=== PATIENT | male | born 1940 | race Caucasian/White ===

== ENCOUNTER → 2016-08-21 | Outpatient (CLI) | payer OTHER, BC ==
[~2016-08-21] MED LIST: ASPI325T45 PO; DOXY100C76 PO; LPR25 PO; ZCRT/40 PO
[2016-08-21 12:38] LABS: BASO % 0.2 %; BASO ABS # 0.02 K/uL (0-0.2); COMPLETE YES; EOS % 0.6 %; HEMATOCRIT 43.9 % (42-52); IG% 0.6 %; LYMPH % 24.7 %; LYMPH ABS # 2.08 K/uL (1.2-3.4); MEAN CELL VOLUME 89.4 fL (80-100); MEAN CORPUSCULAR HEMOGLOBIN 31.4 pg (25-34); MEAN CORPUSCULAR HGB CONC 35.1 g/dl (32-36); MEAN PLATELET VOLUME 10.6 fL (7.4-10.4); MONO % 6.7 %; NEUT % 67.2 %; PLATELET COUNT 223 K/uL (130-400); RED BLOOD COUNT 4.91 M/uL (4.7-6.1); WHITE BLOOD COUNT 8.41 K/uL (4.8-10.8)
[2016-08-21 12:52] LABS: PROTHROMBIN TIME (PATIENT) 10.6 SECONDS (9.0-12.0)
[2016-08-21 17:58] LABS: ALT/SGPT 26 U/L (12-78); AST/SGOT 17 U/L (15-37); BLOOD UREA NITROGEN 21 mg/dl (7-18); BUN/CREATININE RATIO 18.9 (10-20); CALCIUM 8.9 mg/dl (8.5-10.1); CARBON DIOXIDE 26 mmol/L (21-32); CHLORIDE 109 mmol/L (98-107); GLUCOSE 102 mg/dl (70-99); POTASSIUM 4.1 mmol/L (3.5-5.1); SODIUM 143 mmol/L (136-145)
[2016-08-21 18:01] LABS: ALB/GLOB RATIO 1.1 (0.9-2); ALKALINE PHOSPHATASE 57 U/L (45-117)
== END | disposition home or self-care (01) ==
LOC: C.LABPVFM 11:05
PROVIDERS: ATTEND Family Medicine
DX: Z01.818 Encounter for other preprocedural examination (principal); H26.9 Unspecified cataract

== ENCOUNTER → 2016-09-24 | Outpatient (CLI) | payer OTHER, BC ==
[2016-09-24 13:40] LABS: CHOLESTEROL/HDL RATIO 2.6
== END | disposition home or self-care (01) ==
LOC: C.LABPVFM 08:33
PROVIDERS: ATTEND Family Medicine
DX: I25.10 Atherosclerotic heart disease of native coronary artery without angina pectoris (principal); E78.00 Pure hypercholesterolemia, unspecified

== ENCOUNTER 2017-09-17 09:50 | Emergency (ER) | payer OTHER, BC ==
[~2017-09-17] VITALS: Ht 177.8 cm; Wt 100.4 kg
[2017-09-17 09:52] VITALS: TEMP 36.4; Ht 177.8 cm; Wt 100.4 kg
[2017-09-17] MEDS ORDERED: ASPIRIN 81 MG CHEW PO STA (10:06)
[2017-09-17] MEDS ORDERED: ALUMINUM/MAGNESIUM SUSP 30 ML UDC PO STA (10:06)
--- NOTE | 2017-09-17 10:27 | DIAGNOSTIC IMAGING REPORT ---
CHEST ONE VIEW PORTABLE CLINICAL HISTORY: 77 years-old Male presenting with CHEST PAIN. TECHNIQUE: Portable upright AP view of the chest was obtained. COMPARISON: 11/20/2015. FINDINGS: Median sternotomy wires and mediastinal surgical clips again noted. Atherosclerosis of aortic arch. Cardiac silhouette moderately enlarged, stable to slightly increased in size from prior. No significant prominence of pulmonary vasculature. No focal opacity. No large effusion or pneumothorax. Osseous structures normal. Upper abdomen normal. IMPRESSION: 1. Cardiomegaly. No other evidence of acute cardiopulmonary disease. Electronically signed by: Peter Reyez M.D. 09/17/2017 10:26 AM Dictated Date/Time: 09/17/2017 10:25 AM
--- NOTE | 2017-09-17 10:44 | EMERGENCY ROOM VISIT NOTE ---
History Report prepared by Jaci: Carmella López Under the Supervision of: Dr. Pedro Arana D.O. First contact with patient: 10:01 Chief Complaint: CHEST PAIN Stated Complaint: CHEST PAIN Nursing Triage Summary: pt reports chest pain started afew days ago pain in center of chest denies any n/v. does not radiate. has hx of double bypass 2008. dr wright cardiology History of Present Illness The patient is a 77 year old male who presents to the Emergency Room with complaints of intermittent left sided chest pain for the past 2 weeks. He rates his pain as 4/10 in severity. He denies any modifying factors. He is feeling slightly short of breath with exertion. Last evening the patient developed heaviness in the center of his chest. He was able to sleep throughout the night but the heaviness was still present when he woke up this morning. His pain does not radiating into his neck, jaw, shoulder, or arm. The patient denies back pain , abdominal pain, and pain or swelling in his legs. He has a history of a previous SD with a double bypass in 2008. Dr. Wright is his tester wafer substrate. Source of History: patient Onset: 2 weeks ago Position: chest Symptom Intensity: 4/10 Quality: other (heaviness) Timing: intermittent Modifying Factors (Worsening): other (none) Modifying Factors (Relieving): other (none) Associated Symptoms: + SOB, No neck pain, No abdominal pain, No back pain Review of Systems See HPI for pertinent positives & negatives. A total of 10 systems reviewed and were otherwise negative. 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 Surgical Problems: (1) Presence of aortocoronary bypass graft Family History Diabetes mellitus Social History Smoking Status: Former Smoker Current/Historical Medications Scheduled Aspirin (Aspirin), 1 TAB PO QAM Metoprolol Tartrate (Lopressor), 12.5 MG PO BID Simvastatin (Zocor), 40 MG PO HS Allergies Coded Allergies: NO KNOWN DRUG ALLERGIES (Verified Allergy, Unknown, ., 09/17/17) Physical Exam Vital Signs Date Time Temp Pulse Resp B/P (MAP) Pulse Ox O2 Delivery O2 Flow Rate FiO2 09/17/17 12:17 65 18 156/83 93 09/17/17 11:23 62 18 156/83 92 Room Air 09/17/17 10:52 70 09/17/17 10:44 Room Air 09/17/17 09:52 36.4 78 18 182/93 94 Room Air Physical Exam GENERAL: Patient is awake, alert, and in no acute distress. Patient is resting comfortably and showing no signs of anxiety EYES: The conjunctivae are clear. The pupils are round and reactive. EARS, NOSE, MOUTH AND THROAT: The nose is without any evidence of any deformity. Mucous membranes are moist tongue is midline NECK: The neck is nontender and supple. RESPIRATORY: Normal respiratory effort is noted there is no evidence of wheezing rhonchi or rales CARDIOVASCULAR: Regular rate and rhythm noted there no murmurs rubs or gallops normal S1 normal S2 GASTROINTESTINAL: The abdomen is soft. Bowel sounds are present in all quadrants. Abdomen is nontender MUSCULOSKELETAL/EXTREMITIES: There is no evidence of gross deformity full range of motion is noted in the hips and shoulders SKIN: Pedal edema bilaterally. There is no obvious evidence of any rash. There are no petechiae, pallor or cyanosis noted. NEUROLOGIC: Patient is awake alert and oriented x3 Medical Decision & Procedures ER Provider Diagnostic Interpretation: Radiology results as stated below per my review and radiologist interpretation: CHEST ONE VIEW PORTABLE CLINICAL HISTORY: 77 years-old Male presenting with CHEST PAIN. TECHNIQUE: Portable upright AP view of the chest was obtained. COMPARISON: 11/20/2015. FINDINGS: Median sternotomy wires and mediastinal surgical clips again noted. Atherosclerosis of aortic arch. Cardiac silhouette moderately enlarged, stable to slightly increased in size from prior. No significant prominence of pulmonary vasculature. No focal opacity. No large effusion or pneumothorax. Osseous structures normal. Upper abdomen normal. IMPRESSION: 1. Cardiomegaly. No other evidence of acute cardiopulmonary disease. Electronically signed by: Peter Reyez M.D. 09/17/2017 10:26 AM Dictated Date/Time: 09/17/2017 10:25 AM Laboratory Results 09/17/17 10:44 Red Blood Count 5.18, Mean Corpuscular Volume 89.4, Mean Corpuscular Hemoglobin 30.5, Mean Corpuscular Hemoglobin Concent 34.1, Mean Platelet Volume 10.3, Neutrophils (%) (Auto) 63.0, Lymphocytes (%) (Auto) 28.0, Monocytes (%) (Auto) 7.4, Eosinophils (%) (Auto) 0.9, Basophils (%) (Auto) 0.3, Neutrophils # (Auto) 4.41, Lymphocytes # (Auto) 1.96, Monocytes # (Auto) 0.52, Eosinophils # (Auto) 0.06, Basophils # (Auto) 0.02 09/17/17 10:44 Test 09/17/17 10:44 White Blood Count 7.00 K/uL (4.8-10.8) Red Blood Count 5.18 M/uL (4.7-6.1) Hemoglobin 15.8 g/dL (14.0-18.0) Hematocrit 46.3 % (42-52) Mean Corpuscular Volume 89.4 fL (80-100) Mean Corpuscular Hemoglobin 30.5 pg (25-34) Mean Corpuscular Hemoglobin Concent 34.1 g/dl (32-36) Platelet Count 226 K/uL (130-400) Mean Platelet Volume 10.3 fL (7.4-10.4) Neutrophils (%) (Auto) 63.0 % Lymphocytes (%) (Auto) 28.0 % Monocytes (%) (Auto) 7.4 % Eosinophils (%) (Auto) 0.9 % Basophils (%) (Auto) 0.3 % Neutrophils # (Auto) 4.41 K/uL (1.4-6.5) Lymphocytes # (Auto) 1.96 K/uL (1.2-3.4) Monocytes # (Auto) 0.52 K/uL (0.11-0.59) Eosinophils # (Auto) 0.06 K/uL (0-0.5) Basophils # (Auto) 0.02 K/uL (0-0.2) RDW Standard Deviation 46.0 fL (36.4-46.3) RDW Coefficient of Variation 14.0 % (11.5-14.5) Immature Granulocyte % (Auto) 0.4 % Immature Granulocyte # (Auto) 0.03 K/uL (0.00-0.02) Prothrombin Time 10.5 SECONDS (9.0-12.0) Prothromb Time International Ratio 1.0 (0.9-1.1) Activated Partial Thromboplast Time 27.5 SECONDS (21.0-31.0) Partial Thromboplastin Ratio 1.1 Anion Gap 7.0 mmol/L (3-11) Est Creatinine Clear Calc Drug Dose 69.1 ml/min Estimated GFR () 79.7 Estimated GFR (Non- 68.8 BUN/Creatinine Ratio 17.3 (10-20) Calcium Level 8.6 mg/dl (8.5-10.1) Total Bilirubin 0.5 mg/dl (0.2-1) Direct Bilirubin 0.1 mg/dl (0-0.2) Aspartate Amino Transf (AST/SGOT) 19 U/L (15-37) Alanine Aminotransferase (ALT/SGPT) 31 U/L (12-78) Alkaline Phosphatase 59 U/L (45-117) Total Creatine Kinase 84 U/L (39-308) Creatine Kinase MB 2.2 ng/ml (0.5-3.6) Creatine Kinase MB Ratio 2.6 (0-3.0) Troponin I < 0.015 ng/ml (0-0.045) Total Protein 7.9 gm/dl (6.4-8.2) Albumin 3.8 gm/dl (3.4-5.0) Lipase 96 U/L (73-393) Laboratory results per my review. Medications Administered Medications (Trade) Dose Ordered Sig/Natalee Route Start Time Stop Time Status Last Admin Dose Admin Al Hydroxide/Mg Hydroxide (Maalox Susp) 30 ml NOW STAT PO 09/17/17 10:06 09/17/17 10:08 DC 09/17/17 10:57 30 ML Aspirin (Aspirin Chew) 324 mg NOW STAT PO 09/17/17 10:06 09/17/17 10:08 DC 09/17/17 10:56 324 MG ECG Per My Interpretation Indication: chest pain Rate (beats per minute): 77 Rhythm: normal sinus Findings: 1st degree AV block, no acute ischemic change, no ectopy Comparison ECG Date: 11/20/15 Change: no significant change ED Course 1001: The patient was evaluated in room C10. A complete history and physical examination were performed. 1006: Aspirin 324 mg PO, Maalox Susp 30 ml PO 1125: I updated the patient and he is doing well at this time. 1141: I discussed the case with Dr. Wright, the patient's tester wafer substrate. He will follow-up with the patient in the office as an outpatient. 1149: I reassessed the patient at this time. He is feeling better and resting comfortably. I discussed the results and treatment plan with the patient. I answered all pertaining questions that he had. He expressed understanding and verbalized agreement. The patient will be discharged home. Medical Decision Prior records/ancillary studies reviewed. Triage Nursing notes reviewed. The patient's history was concerning for chest pain. Differential diagnosis: Etiologies such as cardiac ischemia, aortic dissection, pulmonary embolism, pneumonia, pneumothorax, musculoskeletal, infections, pericarditis, myocarditis , esophageal rupture, gastrointestinal, as well as others were entertained. The patient is a 77-year-old male who presented to the emergency department for an evaluation of chest discomfort. The patient described chest discomfort he been having for a few weeks but then started having pressure which was substernal over the last evening into today. The patient states his pain was constant. He had an EKG which did not reveal any acute ischemic changes and his heart attack troponin was negative despite having ongoing pain for greater than 6 hours. I discussed the patient's laboratory and radiographic studies with him. I also discussed the limitations of the emergency department workup for chest pain with him. At this time I recommended that he stay in the hospital for further cardiac workup but the patient did not wish to stay in the hospital. For this reason I discussed his case with his primary tester wafer substrate. He is agreed to see the patient as soon as possible for a stress test. The patient was encouraged to rest and avoid any strenuous activity. He was also encouraged to continue all medications as prescribed and return to the emergency department immediately if symptoms change worsen or the need arises. Medication Reconcilliation Current Medication List: was personally reviewed by me Blood Pressure Screening Patient's blood pressure: Elevated blood pressure Blood pressure disposition: Referred to PCP Consults Time Called: 1143 Consulting Physician: Dr. Wright Returned Call: 1141 I discussed the case with Dr. Wright, the patient's tester wafer substrate. He will follow- up with the patient in the office as an outpatient. Impression Primary Impression: Chest pain Additional Impression: Dyspnea on exertion Scribe Attestation The scribe's documentation has been prepared under my direction and personally reviewed by me in its entirety. I confirm that the note above accurately reflects all work, treatment, procedures, and medical decision making performed by me. Departure Information Dispostion Home / Self-Care Referrals Peyman Damon M.D. (PCP) Pedro Wright M.D. Forms Call Back Authorization, HOME CARE DOCUMENTATION FORM, IMPORTANT VISIT INFORMATION Patient Instructions ED Chest Pain Atypical Unkn Cause, My [facility] Additional Instructions Call your tester wafer substrate to schedule a follow-up appointment. Rest and avoid any strenuous activity. Continue all medications as prescribed. Return to the emergency department immediately if symptoms change worsen or the need arises. Call your primary tester wafer substrate today to schedule a follow-up appointment and for possible stress testing. Problem Qualifiers Primary Impression: Chest pain Chest pain type: unspecified Qualified Codes: R07.9 - Chest pain, unspecified
[2017-09-17 11:00] LABS: BASO % 0.3 %; BASO ABS # 0.02 K/uL (0-0.2); EOS % 0.9 %; EOS ABS # 0.06 K/uL (0-0.5); HEMATOCRIT 46.3 % (42-52); HEMOGLOBIN 15.8 g/dL (14.0-18.0); IG# 0.03 K/uL (0.00-0.02); LYMPH ABS # 1.96 K/uL (1.2-3.4); MEAN CELL VOLUME 89.4 fL (80-100); MEAN CORPUSCULAR HEMOGLOBIN 30.5 pg (25-34); MEAN CORPUSCULAR HGB CONC 34.1 g/dl (32-36); MEAN PLATELET VOLUME 10.3 fL (7.4-10.4); MONO % 7.4 %; MONO ABS # 0.52 K/uL (0.11-0.59); NEUT ABS # 4.41 K/uL (1.4-6.5); PLATELET COUNT 226 K/uL (130-400)
[2017-09-17 11:13] LABS: PTT PATIENT 27.5 SECONDS (21.0-31.0)
[2017-09-17 11:17] LABS: ALBUMIN 3.8 gm/dl (3.4-5.0); ALT/SGPT 31 U/L (12-78); AST/SGOT 19 U/L (15-37); BLOOD UREA NITROGEN 18 mg/dl (7-18); CALCIUM 8.6 mg/dl (8.5-10.1); CARBON DIOXIDE 23 mmol/L (21-32); CREATININE 1.03 mg/dl (0.60-1.40); GLUCOSE 104 mg/dl (70-99); LIPASE 96 U/L (73-393); POTASSIUM 3.9 mmol/L (3.5-5.1); SODIUM 139 mmol/L (136-145)
[2017-09-17 11:22] LABS: ALKALINE PHOSPHATASE 59 U/L (45-117); CKMB 2.2 ng/ml (0.5-3.6); TOTAL PROTEIN 7.9 gm/dl (6.4-8.2)
[2017-09-17 12:17] VITALS: BP 156/83; PULSE 65; O2SAT 93
== END 2017-09-17 12:18 | disposition home or self-care (01) ==
LOC: C.EDB 09:51 → C.EDC 12:18
DX: R07.9 Chest pain, unspecified (principal); R06.09 Other forms of dyspnea; I10 Essential (primary) hypertension; I25.2 Old myocardial infarction; E78.5 Hyperlipidemia, unspecified; Z87.891 Personal history of nicotine dependence; Z79.82 Long term (current) use of aspirin; Z83.3 Family history of diabetes mellitus

== ENCOUNTER 2022-02-28 10:57 | Observation (INO) ==
--- NOTE | 2022-02-28 11:21 | ED Triage Note ---
Date of Service February 28, 2022 History of Present Illness This patient was briefly evaluated while in triage. An abbreviated physical exam was performed. This patient is a 81-year-old Male who presents to the ED for evaluation of difficulty moving his right foot. Patient first noticed yesterday morning that his right foot was dragging on the carpet when he walked. He denies any other weakness. Denies headaches, numbness, vision problems, or slurred speech. Physical Exam VITALS: Vitals are noted on the nurse's note and reviewed by myself. GENERAL: This is an 81-year-old male, in no acute distress, well-developed well- nourished. HEART: Regular rate and rhythm without murmurs gallops or rubs. LUNGS: Clear to auscultation bilaterally without wheezes, rales or rhonchi. NEURO: Patient was alert and oriented to person place and time. No facial drooping. Initial orders for labs and / or imaging were placed and patient was placed in the waiting area until a bed is available. Please see further documentation for the full ED course. MDM / Impression Impression Impression: Thalamic stroke
[2022-02-28 13:11] LABS: Basophils # (auto) 0.02 K/uL (0-0.2); Basophils % (auto) 0.2 %; Eosinophils # (auto) 0.03 K/uL (0-0.50); Eosinophils % (auto) 0.3 %; Hematocrit (blood only) 46.8 % (40.1-51.0); Hemoglobin 15.4 g/dl (14.0-18.0); Immature Granulocytes # (auto) 0.02 K/uL (0.00-0.02); Immature Granulocytes % (auto) 0.2 %; Lymphocytes # (auto) 1.97 K/uL (1.2-3.4); Lymphocytes % (auto) 21.6 %; Mean Corpuscular Hemoglobin 30.3 pg (25.0-34.0); Mean Corpuscular Hgb Conc 32.9 g/dL (32.0-36.0); Mean Corpuscular Volume 92.1 fL (80.0-100.0); Mean Platelet Volume 10.5 fL (9.4-12.4); Monocytes # (auto) 0.95 K/uL (0.24-0.82); Monocytes % (auto) 10.4 %; Neutrophils # (auto) 6.12 K/uL (1.4-6.5); Neutrophils % (auto) 67.3 %; Platelet Count 255 K/uL (130-400); RDW Coefficient of Variation 14.1 % (11.5-14.5); RDW Standard Deviation 48.2 fL (36.4-46.3); Red Blood Count 5.08 M/uL (4.63-6.08); White Blood Count 9.11 K/ul (4.8-10.8)
[2022-02-28 13:24] LABS: Partial Thromboplastin Time 27.9 Seconds (21.0-31.0); Prothrombin Time 10.8 Seconds (9.0-12.0)
[2022-02-28 13:41] LABS: Troponin I High Sensitivity 6.2 pg/ml (0-20)
[2022-02-28 13:46] LABS: Albumin Globulin Ratio 1.2 (0.9-2); Albumin Level 4.3 gm/dl (3.4-5.0); BUN Creatinine Ratio 19.6 (10-20); Bilirubin,Total 0.4 mg/dl (0.2-1.0); Calcium 9.8 mg/dl (8.5-10.1); Creatinine Clr Calc Pharmacy 60.5 ml/min; Est GFR (Non-African American) 60.4 ml/min; Globulin 3.5 gm/dl (2.5-4.0); Magnesium 2.2 mg/dl (1.7-2.4); Potassium 4.6 mmol/L (3.5-5.1); Total Protein 7.8 gm/dl (6.0-8.3)
[2022-02-28] MEDS ORDERED: OPTIRAY 300 500mL IV ONE (14:07)
--- NOTE | 2022-02-28 14:36 | CT Scan Report ---
CT ANGIOGRAPHY OF THE NECK WITH CONTRAST CLINICAL HISTORY: Stroke Like Symptoms. COMPARISON STUDY: No previous studies for comparison. Technique: CT angiography of the carotid and vertebral arteries was obtained using [employer] and 3D rec onstruction on an independent workstation. NASCET criteria was utilized. Automated exposure control was utilized for the study. A dose lowering technique was utilized adhering to the principles of ALA RA. CT DOSE: 1236.74 mGy.cm Findings: Emphysema is noted within the lung apices. There is no acute cervical spine fracture. There is no cervical lymphadenopathy. The origin the right vertebral artery is not well assessed on this e xam due to artifact. There is extensive plaque of the aortic arch and proximal left subclavian artery . There is mild stenosis of the left subclavian artery. The left vertebral artery is patent. There is no dissection within the major vessels of the neck. There is moderate plaque within the bilateral ca rotid bifurcations. This results in mild stenosis of the proximal right internal carotid artery appro ximately 30%. The vessel measures 2.7 mm at site of narrowing and 3.9 mm distally. There is no stenos is of the cervical left internal carotid artery. There is moderate stenosis at the origin of the bila teral external carotid arteries. CTA of the head will be reported separately. IMPRESSION: 1. Moderate atherosclerotic plaque within the bilateral carotid bifurcations. Approximate 30% stenosi s of the proximal right internal carotid artery. No stenosis of the cervical left internal carotid ar renetta. 2. Moderate stenoses at the origins of the bilateral external carotid arteries. 3. Mild stenosis of the proximal left subclavian artery. ACT 112: Negative or not required by law. Electronically signed by: Joshua Espinoza M.D. 02/28/2022 2:34 PM
--- NOTE | 2022-02-28 14:47 | CT Scan Report ---
HEAD CT NONCONTRAST CT DOSE: HISTORY: Stroke Like Symptoms TECHNIQUE: Multiaxial CT images of the head were performed without the use of intravenous contrast. A utomated exposure control was utilized for this study. A dose lowering technique was utilized adheri ng to the principles of ALARA. Comparison: Head CT 04/23/2018. Findings: The paranasal sinuses and mastoid air cells are clear. The calvarium and skull base are int act. There is no mass, hematoma, midline shift, acute infarct. White matter hypodensity is nonspecifi c but suggestive of microvascular ischemic change. The ventricles and sulci demonstrate mild age-rela aaron involutional changes. Impression: No acute intracranial abnormality. Moderate microvascular ischemic changes. ACT 112: Negative or not required by law. Electronically signed by: Champ Curran M.D. 02/28/2022 2:44 PM
--- NOTE | 2022-02-28 14:57 | CT Scan Report ---
HEAD CTA HISTORY: Stroke Like Symptoms TECHNIQUE: Multiaxial CT images of the head were performed following the intravenous administration o f contrast to evaluate the major cerebral vessels. Maximum intensity projection images were also obta ined. A dose lowering technique was utilized adhering to the principles of ALARA. COMPARISON: None. FINDINGS: A 7 mm hypodensity within the left thalamus favors a chronic lacunar infarct. No definite a cute infarcts or intracranial hemorrhage identified. Moderate microvascular ischemic changes are agai n noted. The major dural venous sinuses are patent. Severely hypoplastic right P1 segment. The right [employer]AYER is fed primarily through the right posterior communicating artery. This is considered to be a nor mal variant. Moderate calcified plaque within the bilateral carotid siphons. Visualized intracranial internal carotid arteries, distal vertebral arteries, and basilar artery are widely patent. There is no significant stenosis, occlusion, or aneurysm seen within the bilateral ACAs, MCAs, or milk tanker driver. IMPRESSION: 1. No significant stenosis, occlusion, or aneurysm within the [place] of Yun. 2. A 7 mm hypodensity within the left thalamus is technically age indeterminate but favors a chronic lacunar infarct. ACT 112: Negative or not required by law. Electronically signed by: Champ Curran M.D. 02/28/2022 2:56 PM
--- NOTE | 2022-02-28 16:26 | Emergency Department Note ---
History of Present Illness General Chief complaint: TIA Symptoms Stated complaint: RT FOOT NOT WORKING CORRECTLY,TIRED,ON 02/27/22 Time Seen by Provider: 02/28/22 16:07 History of Present Illness 81-year-old male presents to the ED with a chief complaint of dragging his right foot. The patient states that yesterday morning he noticed the symptoms when he was walking. He states that he is able to lift the right foot but if he is not concentrating on it, it seems to drag. He is also having difficulty climbing stairs. The patient's daughter states that it seems like he is tipping forward at times and unsteady with his gait. The patient does have history of MN. He takes 325 mg of aspirin regularly. He has history of two-vessel bypass in 2008. Denies any headaches. No other focal weakness. No other complaints. Home Medications Medication Instructions Recorded Confirmed Type amitriptyline 25 mg tablet 25 mg PO HS 05/07/21 12/24/21 History aspirin 81 mg tablet,delayed 81 mg PO QAM 05/07/21 12/24/21 History release simvastatin 40 mg tablet 40 mg PO HS #30 tabs 06/07/21 12/24/21 Rx tamsulosin 0.4 mg capsule 0.4 mg PO HS #30 caps 08/07/21 12/24/21 Rx metoprolol tartrate 25 mg tablet 12.5 mg PO BID #30 tabs 09/10/21 12/24/21 Rx omeprazole 20 mg capsule,delayed 20 mg PO QAM #60 caps 10/29/21 12/24/21 Rx release molnupiravir 200 mg capsule (EUA) 800 mg PO Q12H 5 days #40 caps 01/10/22 01/10/22 Rx Allergies Allergy/AdvReac Type Severity Reaction Status Date / Time No Known Drug Allergies Allergy Unknown . Verified 12/24/21 11:29 Past Med/Surg History Medical History BPH (benign prostatic hyperplasia) CAD (coronary artery disease) Essential (primary) hypertension Hyperlipidemia, unspecified Impaired fasting glucose Old myocardial infarction (~2008) had double bypass---follows with Dr. Wright Sleep apnea cpap Surgical History History of bilateral cataract extraction History of cardiac cath (~2008) @ [facility]--stents placed had double bypass History of colonoscopy History of excision of pilonidal cyst History of tooth extraction Presence of aortocoronary bypass graft (~2008) double bypass @ [facility] [place]--follows with Dr. Wright Family History Father Myocardial infarction Colorectal cancer Other No family history of adverse response to anesthesia Denies family history of Ovarian cancer Prostate cancer Breast cancer Social History Smoking Status: Former smoker Years Smoked: 16; Second Hand Exposure: No; Hx Alcohol Use: Yes Alcohol type: beer Hx Substance Use: No Preferred Language: Estonian Communication Ability: Effective Hearing Ability: Hard of Hearing Junior Accounting Clerk Required: No Beliefs That Will Affect Care: None marital status: / Current Living Situation: Alone current occupational status: retired How many Children do You have: 1 Feels Safe at Home: Yes Childhood Exposure to Second-Hand Smoke: Yes caffeine: Yes (coffee) Dental Care, Regularly: No Physical Activity Frequency: Daily Seatbelt Use: always Sunscreen Use: No Assistive Devices: CPAP, Denture - Upper and Glasses Review of Systems A total of 10 systems reviewed and were otherwise negative Physical Exam Vital Signs Vital Signs - 24 hr 02/28/22 11:15 02/28/22 16:09 Temperature 36.6 C Temperature Source Temporal Artery Scan Pulse Rate 81 Pulse Rate [Apical] 77 Pulse Rhythm [Apical] Regular Pulse Strength [Apical] Normal Respiratory Rate 18 18 Respiratory Effort / Characteristics Non-Labored Spontaneous Non-Labored Respiratory Depth Normal Normal Respiratory Pattern Regular Regular Blood Pressure 116/70 Blood Pressure [Left Arm] 177/76 H Blood Pressure Mean 85 Blood Pressure Mean [Left Arm] 109 Blood Pressure Position Sitting Pulse Oximetry 95 98 Oxygen Delivery Method Room Air Room Air Sepsis Recent Fever Within 48 Hours No Sepsis New/Unexplained Change in Mental Status No Sepsis Action Taken by Nursing No Action Required CONSTITUTIONAL/VITAL SIGNS: Reviewed / noted above. GENERAL: Non-toxic in appearance. INTEGUMENTARY: Warm, dry, and [place]. HEAD: Normocephalic. EYES: without scleral icterus or trauma. ENT/OROPHARYNX: clear and moist. LYMPHADENOPATHY/NECK: Is supple without lymphadenopathy or meningismus. RESPIRATORY: Clear to auscultation bilaterally. No increased work of breathing. CARDIOVASCULAR: Regular rate and rhythm. GI/ABDOMEN: Soft and nontender. No organomegaly or pulsatile mass. EXTREMITIES: Warm and well perfused. BACK: No CVA tenderness. NEUROLOGICAL: Intact without focal deficits. The patient's cranial nerves II through XII are intact. Cerebellar testing is within normal limits. PSYCHIATRIC: normal affect. MUSCULOSKELETAL: Normally developed with good muscle tone. TRIAGE NURSING DOCUMENTATION REVIEWED. Course Administered Medications Discontinued Medications Ioversol (Optiray 300 500ml) 112 ml IV ONCE ONE Stop: 02/28/22 14:08 Last Admin: 02/28/22 14:08 Dose: 112 ml Documented By: FATIMAH Medical Decision Making Differential Diagnosis Differential includes acute coronary syndrome, myocardial infarction, CVA, TIA, anemia, infection, pneumonia, UTI, pyelonephritis, poor nutrition, dehydration, electrolyte disturbance,hypoglycemia. Medical Records Attestation: I reviewed the patient's medical records. Home Medications Current Medication List: was personally reviewed by me Laboratory Data Attestation: I reviewed the patient's lab results. Result diagrams: 02/28/22 12:53 02/28/22 12:53 Lab Results 02/28/22 02/28/22 02/28/22 Range/Units 12:53 12:53 12:53 WBC 9.11 (4.8-10.8) K/ul RBC 5.08 (4.63-6.08) M/uL Hgb 15.4 (14.0-18.0) g/dl Hct 46.8 (40.1-51.0) % MCV 92.1 (80.0-100.0) fL MCH 30.3 (25.0-34.0) pg MCHC 32.9 (32.0-36.0) g/dL RDW Std Deviation 48.2 H (36.4-46.3) fL RDW Coeff of Jose 14.1 (11.5-14.5) % Plt Count 255 (130-400) K/uL MPV 10.5 (9.4-12.4) fL Immature Gran % (Auto) 0.2 % Neut % (Auto) 67.3 % Lymph % (Auto) 21.6 % Iron % (Auto) 10.4 % Eos % (Auto) 0.3 % Baso % (Auto) 0.2 % Neut # (Auto) 6.12 (1.4-6.5) K/uL Lymph # (Auto) 1.97 (1.2-3.4) K/uL Iron # (Auto) 0.95 H (0.24-0.82) K/uL Eos # (Auto) 0.03 (0-0.50) K/uL Baso # (Auto) 0.02 (0-0.2) K/uL Immature Gran # (Auto) 0.02 (0.00-0.02) K/uL PT 10.8 (9.0-12.0) Seconds INR 1.0 (0.9-1.1) APTT 27.9 (21.0-31.0) Seconds PTT Ratio 1.0 Sodium 136 (136-145) mmol/L Potassium 4.6 (3.5-5.1) mmol/L Chloride 103 (98-107) mmol/L Carbon Dioxide 27 (21-32) mmol/L Anion Gap 6 (3-11) BUN 22 (6-23) mg/dl Creatinine 1.12 (0.6-1.4) mg/dl Est Cr Clr Drug Dosing 60.5 ml/min Est GFR ( Amer) 70.0 ml/min Est GFR (Non-Af Amer) 60.4 ml/min BUN/Creatinine Ratio 19.6 (10-20) Glucose 109 H (70-99(Fasting)) mg/dl Calcium 9.8 (8.5-10.1) mg/dl Magnesium 2.2 (1.7-2.4) mg/dl Total Bilirubin 0.4 (0.2-1.0) mg/dl AST 20 (13-39) U/L ALT 18 (7-52) U/L Alkaline Phosphatase 55 (34-104) U/L Troponin I High Sens 6.2 (0-20) pg/ml Total Protein 7.8 (6.0-8.3) gm/dl Albumin 4.3 (3.4-5.0) gm/dl Globulin 3.5 (2.5-4.0) gm/dl Albumin/Globulin Ratio 1.2 (0.9-2) Imaging Data Radiologist's Impression: Head CT 02/28/22 11:[address] DOSE: HISTORY: Stroke Like Symptoms TECHNIQUE: Multiaxial CT images of the head were performed without the use of intravenous contrast. Automated exposure control was utilized for this study. A dose lowering technique was utilized adhering to the principles of ALARA. Comparison: Head CT 04/23/2018. Findings: The paranasal sinuses and mastoid air cells are clear. The calvarium and skull base are intact. There is no mass, hematoma, midline shift, acute infarct. White matter hypodensity is nonspecific but suggestive of microvascular ischemic change. The ventricles and sulci demonstrate mild age-related involutional changes. Impression: No acute intracranial abnormality. Moderate microvascular ischemic changes. ACT 112: Negative or not required by law. Electronically signed by: Champ Curran M.D. 02/28/2022 2:44 PM Head CTA 02/28/22 11:19 HEAD CTA HISTORY: Stroke Like Symptoms TECHNIQUE: Multiaxial CT images of the head were performed following the intravenous administration of contrast to evaluate the major cerebral vessels. Maximum intensity projection images were also obtained. A dose lowering technique was utilized adhering to the principles of ALARA. COMPARISON: None. FINDINGS: A 7 mm hypodensity within the left thalamus favors a chronic lacunar infarct. No definite acute infarcts or intracranial hemorrhage identified. Moderate microvascular ischemic changes are again noted. The major dural venous sinuses are patent. Severely hypoplastic right P1 segment. The right PRIMARY SCHOOL TEACHER is fed primarily through the right posterior communicating artery. This is considered to be a normal variant. Moderate calcified plaque within the bilateral carotid siphons. Visualized intracranial internal carotid arteries, distal vertebral arteries, and basilar artery are widely patent. There is no significant stenosis, occlusion, or aneurysm seen within the bilateral ACAs, MCAs, or hydrology professor. IMPRESSION: 1. No significant stenosis, occlusion, or aneurysm within the [place] of [place]un. 2. A 7 mm hypodensity within the left thalamus is technically age indeterminate but favors a chronic lacunar infarct. ACT 112: Negative or not required by law. Electronically signed by: Champ Curran M.D. 02/28/2022 2:56 PM Neck CTA 02/28/22 11:19 CT ANGIOGRAPHY OF THE NECK WITH CONTRAST CLINICAL HISTORY: Stroke Like Symptoms. COMPARISON STUDY: No previous studies for comparison. Technique: CT angiography of the carotid and vertebral arteries was obtained using Optiray and 3D reconstruction on an independent workstation. NASCET criteria was utilized. Automated exposure control was utilized for the study. A dose lowering technique was utilized adhering to the principles of ALARA. CT DOSE: 1236.74 mGy.cm Findings: Emphysema is noted within the lung apices. There is no acute cervical spine fracture. There is no cervical lymphadenopathy. The origin the right vertebral artery is not well assessed on this exam due to artifact. There is extensive plaque of the aortic arch and proximal left subclavian artery. There is mild stenosis of the left subclavian artery. The left vertebral artery is patent. There is no dissection within the major vessels of the neck. There is moderate plaque within the bilateral carotid bifurcations. This results in mild stenosis of the proximal right internal carotid artery approximately 30%. The vessel measures 2.7 mm at site of narrowing and 3.9 mm distally. There is no stenosis of the cervical left internal carotid artery. There is moderate stenosis at the origin of the bilateral external carotid arteries. CTA of the head will be reported separately. IMPRESSION: 1. Moderate atherosclerotic plaque within the bilateral carotid bifurcations. Approximate 30% stenosis of the proximal right internal carotid artery. No stenosis of the cervical left internal carotid artery. 2. Moderate stenoses at the origins of the bilateral external carotid arteries. 3. Mild stenosis of the proximal left subclavian artery. ACT 112: Negative or not required by law. Electronically signed by: Joshua Espinoza M.D. 02/28/2022 2:34 PM ECG Data Attestation: I personally reviewed and interpreted this ECG as follows: Additional Comments: Twelve-lead EKG: Per my interpretation shows a sinus rhythm at a rate of 70. First-degree AV block. No ST elevation. No PVCs. Normal QTC. MDM Narrative 81-year-old male presents with right leg weakness, stumbling going up steps and dragging his foot with walking. History of vascular disease and CABG, currently on aspirin. His exam does not reveal any focal deficits. A CT scan of the head without contrast was negative for acute disease. He does have a left thalamic lacunar infarct. He has no history of strokes in the past. This could represent the patient's symptoms. CT angiogram of the head was negative. CT angiogram of the neck does show some vascular disease. Twelve-lead EKG shows a sinus rhythm. CBC and chemistry panel was unremarkable. The patient was told the results. I do feel based on the symptoms he has had a stroke. He has no history of thalamic stroke in the past and his symptoms are consistent with that. He will be seen by the hospitalist for further evaluation and care. Impression & Plan Thalamic stroke Discharge Plan Visit Data Chief Complaint: TIA Symptoms Stated Complaint: RT FOOT NOT WORKING CORRECTLY,TIRED,ON 02/27/22 ED Provider: Martell Buitrago Discharge Problem: Thalamic stroke Patient Disposition: Being Evaluated by Hospitalist Forms Stand Alone Forms: My [facility], Virtual Emergency Department, Important Visit Information Prescriptions Prescriptions: No Action simvastatin 40 mg tablet 40 mg PO HS Qty: 30 11RF tamsulosin 0.4 mg capsule 0.4 mg PO HS Qty: 30 11RF metoprolol tartrate 25 mg tablet 12.5 mg PO BID Qty: 30 11RF omeprazole 20 mg capsule,delayed release(DR/EC) 20 mg PO QAM Qty: 60 11RF molnupiravir 200 mg capsule 800 mg PO Q12H 5 Days Qty: 40 0RF aspirin 81 mg tablet,delayed release (DR/EC) 81 mg PO QAM amitriptyline 25 mg tablet 25 mg PO HS Referrals Referrals: Yash Coreas DO [Primary Care Provider] -
--- NOTE | 2022-02-28 16:28 | History & Physical Report ---
Date of Service February 28, 2022 Assessment & Plan (1) CVA (cerebral vascular accident): Plan: Triston Barron is an 81-year-old male with a past medical history of LVH, CAD with coronary bypass, BPH, who presents with weakness of the right foot and right foot drop which began evening prior to admission. Left foot weakness,? CVA tPA not indicated both due to time course of presentation, and some improvement in symptoms by time of assessment. At time of hospitalist assessment patient qualitatively feels somewhat weaker in his right ankle, but has 5/5 strength bilaterally CTAN:1. Moderate atherosclerotic plaque within the bilateral carotid bifurcations. Approximate 30% stenosis of the proximal right internal carotid artery. No stenosis of the cervical left internal carotid artery. 2. Moderate stenoses at the origins of the bilateral external carotid arteries.3. Mild stenosis of the proximal left subclavian artery. CTA-H:1. No significant stenosis, occlusion, or aneurysm within the [place] of [place]. 2. A 7 mm hypodensity within the left thalamus is technically age indeterminate but favors a chronic lacunar infarct. Head CT: No acute intracranial abnormality. Moderate microvascular ischemic changes. - No prior hx of strokes MRI pending - ASA --> Plaavix 75mg - Lipids pending --> If LDL >70 switch to atorvastatin Losartan added for improved blood pressure control CAD with history of CABG x2 2008 Last followed up with [facility] cardiology 12/2021 Has had progressive exertional dyspnea and exercise intolerance, he is pending a Lexiscan stress test Aspirin switched to Plavix as above Metoprolol continued, can convert to succinate and increase if needed Simvastatin continued, however should be switched to atorvastatin with dose depending on lipid panel in the morning BPH Continue Flomax 0.4 mg nightly Depression Continue amitriptyline 25 mg p.o. nightly DVT prophylaxis: SCDs, Lovenox tomorrow Diet: Heart healthy Disposition: Med telemetry for monitoring for TIA eval CODE STATUS: DNR/DNI, discussed with patient at bedside. Surrogate DM would be [phone] Angelique Dorsey granddaughter. DNR/DNI. (2) CAD (coronary artery disease): (3) Presence of aortocoronary bypass graft: (4) Obesity, diabetes, and hypertension syndrome: (5) LVH (left ventricular hypertrophy): (6) Hyperlipidemia, unspecified: (7) Sleep apnea: History of Present Illness Primary Care Provider: Yash Coreas DO Triston Barron is an 81-year-old male with a past medical history of LVH, CAD with coronary bypass, BPH, who presents with weakness of the right foot and right foot drop which began evening prior to admission. 80yo hx vascular disease and CABG on aspirin who yesterday ~8am woke up and was dragging his R foot. Stumbles going up stairs because R foot cannot move like it normally does. No preceding trauma. Per patient he was worried about a ministroke yesterday morning. Woke up and went ot the bathroom and was OK. Got back up around 8am and his R foot was dragging on the carpet. Walked to the kitchen, and foot dragging was persistent. COuld lift at the hip, but had trouble lifting it at the ankle and was a little bit off balance compared to normal. Mis-stepped a few times and felt like his balance was off as well. R foot still feels weak, balance improved but still feels off a little bit. No numbness or tingling. No weakness of other leg or arms. No dysarthria. No confusion. No chest pain, chest pressure, syncope, or presyncope. No hx of afib. No nausea/vomiting/diarrhea/constipation. No vision change. No back pain. No leg pain. No fevers/chills. Does fatigue easily walking down the road. Pending a lexiscan with Dr. Wright. Medical History: Reviewed Medications: Reviewed Surgical History: Reviewed Allergies: Reviewed Social History: Tobacco use 50 years ago, none recent. Rare beer, 1 case lasts me a year. Code Status: Suurroate DM would be [phone] Angelique Dorsey granddaughter. DNR/DNI. Allergies Allergy/AdvReac Type Severity Reaction Status Date / Time No Known Drug Allergies Allergy Unknown . Verified 12/24/21 11:29 Home Medications Medication Instructions Recorded Confirmed Type amitriptyline 25 mg tablet 25 mg PO HS 05/07/21 12/24/21 History aspirin 81 mg tablet,delayed 81 mg PO QAM 05/07/21 12/24/21 History release simvastatin 40 mg tablet 40 mg PO HS #30 tabs 06/07/21 12/24/21 Rx tamsulosin 0.4 mg capsule 0.4 mg PO HS #30 caps 08/07/21 12/24/21 Rx metoprolol tartrate 25 mg tablet 12.5 mg PO BID #30 tabs 09/10/21 12/24/21 Rx omeprazole 20 mg capsule,delayed 20 mg PO QAM #60 caps 10/29/21 12/24/21 Rx release molnupiravir 200 mg capsule (EUA) 800 mg PO Q12H 5 days #40 caps 01/10/22 01/10/22 Rx Past Med/Surg History Medical History (Updated 02/28/22 @ 16:33 by Peter Ruelas MD) BPH (benign prostatic hyperplasia) CAD (coronary artery disease) Essential (primary) hypertension Hyperlipidemia, unspecified Impaired fasting glucose Old myocardial infarction (~2008) had double bypass---follows with Dr. Wright Sleep apnea cpap Surgical History History of bilateral cataract extraction History of cardiac cath (~2008) @ [facility]--stents placed had double bypass History of colonoscopy History of excision of pilonidal cyst History of tooth extraction Presence of aortocoronary bypass graft (~2008) double bypass [place] [facility]follows with Dr. Wright Family History Father Myocardial infarction Colorectal cancer Other No family history of adverse response to anesthesia Denies family history of Ovarian cancer Prostate cancer Breast cancer Social History Smoking Status: Former smoker Years Smoked: 16; Second Hand Exposure: No; Hx Alcohol Use: Yes Alcohol type: beer Hx Substance Use: No Preferred Language: Persian Communication Ability: Effective Hearing Ability: Hard of Hearing Superintendent Quarry Required: No Beliefs That Will Affect Care: None marital status: / Current Living Situation: Alone current occupational status: retired How many Children do You have: 1 Feels Safe at Home: Yes Childhood Exposure to Second-Hand Smoke: Yes caffeine: Yes (coffee) Dental Care, Regularly: No Physical Activity Frequency: Daily Seatbelt Use: always Sunscreen Use: No Assistive Devices: CPAP, Denture - Upper and Glasses Review of Systems Review of Systems: All systems reviewed & are unremarkable except as noted in Subjective Physical Exam Physical Exam: General: A&Ox3. NAD. Cooperative. HEENT: Atraumatic, normocephalic. Pulm: CTAB A&P. -wheezes, -rales, -rhonchi. Symmetrical chest rise. No increase in work of breathing. No respiratory distress. Cardiac: RRR, -mrg. Radial pulses intact and symmetrical. Abdominal: Nontender, nondistended, soft. BS present. CRANIAL NERVES: II: Pupils equal and reactive, no relative afferent pupillary defect, no VF cuts III, IV, : EOM intact, no gaze preference or deviation, no nystagmus. V: normal sensation in V1, V2, and V3 segments bilaterally VII: no asymmetry, no nasolabial fold flattening VIII: normal hearing to speech IX, X: normal palatal elevation, no uvular deviation XI: 5/5 head turn and 5/5 shoulder shrug bilaterally XII: midline tongue protrusion MOTOR: RUE: 5/5 Shoulder internal rotation, external rotation, flexion, extension, abduction, adduction 5/5 Elbow flexion/extension, wrist flexion/extension 5/5 logistics associate strength, finger flexion/extension, interosseus LUE: 5/5 Shoulder internal rotation, external rotation, flexion, extension, abduction, adduction 5/5 Elbow flexion/extension, wrist flexion/extension 5/5 logistics associate strength, finger flexion/extension, interosseus RLE: 5/5 to hip flexion/extension, knee flexion/extension, ankle dorsiflexion/plantarflexion LLE: 5/5 to hip flexion/extension, knee flexion/extension, ankle dorsiflexion/plantarflexion REFLEXES: 2/4 patellar SENSORY: Normal to touch in upper and lower extremities without deficit or asymmetry No hemineglect, COORD: Normal finger to nose and heel to roberts, no tremor, no dysmetria Results & Data Results & Data ([facility]) Vital Signs (Past 12 Hours) Vital Signs Temp Pulse Pulse Resp BP BP Pulse Ox 02/28/22 16:09 77 18 177/76 H 98 02/28/22 11:15 36.6 C 81 18 116/70 95 O2 Del Method 02/28/22 16:09 Room Air 02/28/22 11:15 Room Air PG Care Time/CCT Total # of Minutes Spent Total Time Spent with Patient: Total time spent is greater than 50% in coordination of care (as documented) at patient's floor/unit and/or counseling patient: Coding Level of Care Code INT OBSERVATION CARE 50M LVL 2 Diagnoses CVA (cerebral vascular accident) I63.9 CAD (coronary artery disease) I25.10 Presence of aortocoronary bypass graft Z95.1 Obesity, diabetes, and hypertension syndrome E11.69; E11.59; E66.9; I10 LVH (left ventricular hypertrophy) I51.7 Hyperlipidemia, unspecified E78.5 Sleep apnea G47.30
[2022-02-28] MEDS ORDERED: LOSARTAN POTASSIUM 50 MG TAB PO SCH (17:00)
[2022-02-28] MEDS ORDERED: SIMVASTATIN 40 MG TAB PO SCH (21:46)
[2022-02-28] MEDS ORDERED: AMITRIPTYLINE HCL 25 MG TAB PO SCH (21:46)
[2022-02-28] MEDS ORDERED: PHARMACIST DISCHARGE MED REC CONSULT PRN (21:46)
[2022-02-28] MEDS ORDERED: ACETAMINOPHEN 325 MG TAB PO PRN (21:46)
[2022-02-28] MEDS ORDERED: TAMSULOSIN HCL 0.4 MG CAP PO SCH (21:46)
[2022-02-28] MEDS ORDERED: POLYETHYLENE (MIRALAX) 17 GM PACK PO PRN (21:46)
[2022-02-28] MEDS ORDERED: METOPROLOL TARTRATE 1 MG/ML VIAL IV STA (23:27)
[2022-02-28] MEDS: METOPROLOL TARTRATE 25 MG TAB PO SCH (23:46)
[2022-03-01 04:36] LABS: Basophils # (auto) 0.03 K/uL (0-0.2); Basophils % (auto) 0.4 %; Eosinophils # (auto) 0.08 K/uL (0-0.50); Hematocrit (blood only) 43.4 % (40.1-51.0); Hemoglobin 14.2 g/dl (14.0-18.0); Immature Granulocytes # (auto) 0.02 K/uL (0.00-0.02); Immature Granulocytes % (auto) 0.3 %; Lymphocytes # (auto) 2.09 K/uL (1.2-3.4); Lymphocytes % (auto) 26.8 %; Mean Corpuscular Hemoglobin 29.9 pg (25.0-34.0); Mean Corpuscular Hgb Conc 32.7 g/dL (32.0-36.0); Mean Corpuscular Volume 91.4 fL (80.0-100.0); Mean Platelet Volume 10.2 fL (9.4-12.4); Monocytes # (auto) 0.84 K/uL (0.24-0.82); Monocytes % (auto) 10.8 %; Neutrophils # (auto) 4.75 K/uL (1.4-6.5); Neutrophils % (auto) 60.7 %; Platelet Count 234 K/uL (130-400); RDW Coefficient of Variation 14.2 % (11.5-14.5); RDW Standard Deviation 47.9 fL (36.4-46.3); Red Blood Count 4.75 M/uL (4.63-6.08); White Blood Count 7.81 K/ul (4.8-10.8)
[2022-03-01 04:56] LABS: BUN Creatinine Ratio 17.6 (10-20); Calcium 9.1 mg/dl (8.5-10.1); Chol HDL Ratio 4.2 (0-5); Creatinine Clr Calc Pharmacy 56.9 ml/min; Est GFR (African American) 65.1 ml/min; Est GFR (Non-African American) 56.2 ml/min; Potassium 4.2 mmol/L (3.5-5.1)
--- NOTE | 2022-03-01 06:02 | Electrocardiogram Report ---
Test Reason : Blood Pressure : / mmHG Vent. Rate : 071 BPM Atrial Rate : 071 BPM P-R Int : 238 ms QRS Dur : 094 ms QT Int : 406 ms P-R-T Axes : 037 045 054 degrees QTc Int : 441 ms Poor data quality, interpretation may be adversely affected Sinus rhythm with 1st degree A-V block Otherwise normal ECG When compared with ECG of 17-SEP-2017 09:55, No significant change was found Confirmed by Alexis Rushing ([id number]) on 03/01/2022 6:02:38 AM Referred By: Confirmed By:Alexis Rushing
--- NOTE | 2022-03-01 07:10 | XRay Report ---
[facility] 3 VIEWS HISTORY: pre-MRI screening. COMPARISON: Head CT and CTA of the head February 28, 2022. FINDINGS: There are no radiopaque foreign bodies identified within the orbits. There is a small metal lic density within the right supraorbital soft tissues. This is not a contraindication to MRI. IMPRESSION: No radiopaque foreign bodies identified within the orbits. ACT 112: Negative or not required by law. Electronically signed by: Joshua Espinoza M.D. 03/01/2022 7:08 AM
[2022-03-01 07:37] LABS: Estimated Average Glucose 134 mg/dl; Hemoglobin A1C 6.3 % (4.5-5.6)
[2022-03-01] MEDS ORDERED: ENOXAPARIN INJ 40 MG/0.4 ML SYR SQ SCH (09:00)
[2022-03-01] MEDS ORDERED: CLOPIDOGREL BISULFATE 75 MG TAB PO SCH (09:00)
[2022-03-01] MEDS ORDERED: ATORVASTATIN 40 MG TAB PO SCH (09:00)
[2022-03-01] MEDS ORDERED: LOSARTAN POTASSIUM 50 MG TAB PO SCH (09:00)
[2022-03-01] MEDS: METOPROLOL TARTRATE 25 MG TAB PO SCH (09:19)
--- NOTE | 2022-03-01 11:01 | Magnetic Resonance Report ---
MR brain wo con CLINICAL HISTORY: CVA eval TECHNIQUE: Multiplanar and multisequence MR images of the brain were obtained without intravenous con trast. Comparison: None available at the time of this dictation. FINDINGS: There is restricted diffusion in the left thalamus. This is associated with mild edema. No significan t mass effect or midline shift is seen. Foci of T2 and FLAIR hyperintensity are noted in the paravent ricular areas consistent with chronic small vessel ischemic disease. Ex vacuo ventriculomegaly and olivier lcal enlargement is noted compatible with diffuse encephalomalacia. There is no evidence of acute int raparenchymal hemorrhage. No extra axial fluid collections are seen. The corpus callosum, pituitary g land, and cerebellar tonsils appear grossly unremarkable. Flow voids of the major intracranial arterial vessels are identified. The imaged portions of the para nasal sinuses, mastoid air cells, and orbits are unremarkable. IMPRESSION: Findings compatible with a small left thalamic acute infarct. No hemorrhage is seen. ACT 112: Positive. There are findings on this exam that require communication between the performing entity and the patient following Patient Test Result Information Act ([place] Act 112) guidelines. Electronically signed by: Pascual Brown M.D. 03/01/2022 10:59 AM
[2022-03-01] MEDS ORDERED: STROKE PATIENT DISCHARGE STA (11:49)
--- NOTE | 2022-03-01 11:56 | Discharge Summary ---
Discharge Summary Date of Service March 01, 2022 Admission HPI Per Admitting Provider Triston Barron is an 81-year-old male with a past medical history of LVH, CAD with coronary bypass, BPH, who presents with weakness of the right foot and right foot drop which began evening prior to admission. 80yo hx vascular disease and CABG on aspirin who yesterday ~8am woke up and was dragging his R foot. Stumbles going up stairs because R foot cannot move like it normally does. No preceding trauma. Per patient he was worried about a ministroke yesterday morning. Woke up and went ot the bathroom and was OK. Got back up around 8am and his R foot was dragg ing on the carpet. Walked to the kitchen, and foot dragging was persistent. COuld lift at the hip, but had trouble lifting it at the ankle and was a little bit off balance compared to normal. Mis-stepped a few times and felt like his balance was off as well. R foot still feels weak, balance improved but still feels off a little bit. No numbness or tingling. No weakness of other leg or arms. No dysarthria. No confusion. No chest pain, chest pressure, syncope, or presyncope. No hx of afib. No nausea/vomiting/diarrhea/constipation. No vision change. No back pain. No leg pain. No fevers/chills. Does fatigue easily walking down the road. Pending a lexiscan with Dr. Wright. Medical History: Reviewed Medications: Reviewed Surgical History: Reviewed Allergies: Reviewed Social History: Tobacco use 50 years ago, none recent. Rare beer, 1 case lasts me a year. Code Status: [place] DM would be [phone] Angelique Dorsey granddaughter. DNR/DNI. Admission Exam Per Admitting Provider General: A&Ox3. NAD. Cooperative. HEENT: Atraumatic, normocephalic. Pulm: CTAB A&P. -wheezes, -rales, -rhonchi. Symmetrical chest rise. No increase in work of breathing. No respiratory distress. Cardiac: RRR, -mrg. Radial pulses intact and symmetrical. Abdominal: Nontender, nondistended, soft. BS present. CRANIAL NERVES: II: Pupils equal and reactive, no relative afferent pupillary defect, no VF cuts III, IV, : EOM intact, no gaze preference or deviation, no nystagmus. V: normal sensation in V1, V2, and V3 segments bilaterally VII: no asymmetry, no nasolabial fold flattening VIII: normal hearing to speech IX, X: normal palatal elevation, no uvular deviation XI: 5/5 head turn and 5/5 shoulder shrug bilaterally XII: midline tongue protrusion MOTOR: RUE: 5/5 Shoulder internal rotation, external rotation, flexion, extension, abduction, adduction 5/5 Elbow flexion/extension, wrist flexion/extension 5/5 flight reservations manager strength, finger flexion/extension, interosseus LUE: 5/5 Shoulder internal rotation, external rotation, flexion, extension, abduction, adduction 5/5 Elbow flexion/extension, wrist flexion/extension 5/5 flight reservations manager strength, finger flexion/extension, interosseus RLE: 5/5 to hip flexion/extension, knee flexion/extension, ankle dorsiflexion/plantarflexion LLE: 5/5 to hip flexion/extension, knee flexion/extension, ankle dorsiflexion/plantarflexion REFLEXES: 2/4 patellar SENSORY: Normal to touch in upper and lower extremities without deficit or asymmetry No hemineglect, COORD: Normal finger to nose and heel to roberts, no tremor, no dysmetria Principal Dx & Hospital Course #1 = Principal Diagnosis (1) CVA (cerebral vascular accident): Triston Barron is an 81-year-old male with a past medical history of LVH, CAD with coronary bypass, BPH, who presents with weakness of the right foot and right foot drop which began evening prior to admission. CVA: Presented with right foot drop, no other symptoms. - CT Head without acute intracranial abnormality, but with moderate microvascular ischemic changes. - CTA Head/Neck showed 7mm left age-indeterminate hypodensity. - MRI Brain showed small left thalamic acute infarct without evidence of hemorrhage. - Case discussed with Neurology: - DAPT x3 weeks followed by Plavix alone. - Optimize BP, BSG, lipids. - Simvastatin transitioned to atorvastatin 40mg daily. - PT worked with patient; recommended discharge home. - Follow up with Neurology in 2-3 weeks outpatient. (2) CAD (coronary artery disease): - Last followed up with [facility]. - Has had progressive exertional dyspnea and exercise intolerance, he is pending a Lexiscan stress test. Dr. Wright aware and will schedule. - Metoprolol continued. - Simvastatin transitioned to atorvastatin. (3) Presence of aortocoronary bypass graft: see above (4) Obesity, diabetes, and hypertension syndrome: - A1c 6.3%, well controlled. - PCP follow up regarding BP control. (5) Hyperlipidemia, unspecified: see above Plan Dispo: home Discharge Exam Constitutional WD/WN, vitals as above Neurologic patellar DTR's 2+ bilat, sensation intact and PERRL, EOMI, accommodation nl, no face palsy, no dysarthria strength 5/5 in bilateral upper and lower extremities Updated Medication List Medication Instructions Recorded Confirmed Type amitriptyline 25 mg tablet 25 mg PO HS 05/07/21 02/28/22 History aspirin 81 mg tablet,delayed 81 mg PO QAM 05/07/21 02/28/22 History release tamsulosin 0.4 mg capsule 0.4 mg PO HS #30 caps 08/07/21 02/28/22 Rx metoprolol tartrate 25 mg tablet 12.5 mg PO BID #30 tabs 09/10/21 02/28/22 Rx molnupiravir 200 mg capsule (EUA) 800 mg PO Q12H 5 days #40 caps 01/10/22 02/28/22 Rx atorvastatin 40 mg tablet 40 mg PO QAM #30 tabs 03/01/22 Rx clopidogrel 75 mg tablet 75 mg PO QAM 30 days #30 tabs 03/01/22 Rx pantoprazole 20 mg tablet,delayed 20 mg PO DAILY 4 weeks #28 tabs 03/01/22 Rx release Hospital Stay Data Diagnostic Imagining Performed 02/28/22 11:19 CT angio head w con Stat CT angio neck with con Stat CT head/brain wo con Stat 03/01/22 00:00 MR brain wo con Routine Pending Results Patient Have Any Pending Studies at Discharge: No Discharge Instructions Given to Patient (Per Discharging Provider) You were admitted to the hospital due to right foot drop. You were found on your MRI to have a very small stroke in the part of the brain called the thalamus. You were started on Plavix, and your simvastatin was changed to atorvastatin. You worked well with physical therapy, and you were felt to be safe for discharge home with the following recommendations: 1) Your case was discussed with Neurology, Dr. Nba Mantilla. You should have follow up in his office in 2-3 weeks. His office number is [phone]; please call if you do not hear from their office by Friday. Until you see Neurology, you should take it easy at home and not do any heavy lifting or activities such as cutting the grass, lifting heavy boxes. 2) You were started on a medication called Plavix. This is a medication that works with aspirin to prevent further strokes. You will take this one pill (75 milligrams) daily for 3 weeks. After taking both aspirin and Plavix for 3 weeks, you will stop aspirin and only take daily Plavix. 3) Your cholesterol could be a bit lower to help reduce stroke risk, so your simvastatin was changed to atorvastatin. You will STOP simvastatin, and START atorvastatin (40 milligrams daily). 4) Please follow up with your primary care doctor within 7-10 days of hospital discharge. Please talk to your primary care doctor about making sure that your blood pressure and blood sugars are controlled well to decrease your future stroke risk. 5) Dr Wright is aware that you need your Lexiscan rescheduled, and his office will call you to pick a new date. 6) Please STOP taking omeprazole. START taking pantoprazole instead (sent to [facility]), one pill daily. Pantoprazole interacts better with your new medications. If you have any weakness, numbness, tingling, facial droop, please come to the ER immediately. If you have any other concerns such as shortness of breath, chest pain, etc, please seek urgent care. Risk Factors for Stroke: You can reduce your chances of stroke by working with your medical provider to adopt a healthy lifestyle. Some specific ways to lower your chance of stroke are: * If you are a smoker, now is the time to stop smoking cigarettes * If you are diabetic, improve the control of your blood sugars * Avoid excessive amounts of alcohol * Control high blood pressure * Lose weight if you are overweight * Be sure to lead an active lifestyle * Eat a healthy diet low in salt, cholesterol and fat You should know about other risk factors for stroke that you are unable to control. These include: * Age 55 years or older * Male gender * Certain racial groups: , or / * Family History of Stroke, Mini stroke or Heart Attack * Sickle Cell Disease Follow Up: It is important for you to keep your follow up appointments with your medical provider. Who to Call and When: Medical Emergencies: Call 911 immediately if you experience any of the following warning signs and symptoms of Stroke: * Sudden numbness or weakness of the face, arm or leg, especially on one side of the body * Sudden confusion, trouble speaking or understanding * Sudden trouble seeing in one or both eyes * Sudden trouble walking, dizziness, loss of balance or coordination * Sudden severe headache with no cause Do not delay calling 911 if you experience any warning signs or symptoms of a stroke. Delay in seeking medical attention may affect what treatments can be given to you. ., feel free to come for evaluation at the ER. Total Time Total Time Spent Total Time Spent (In Minutes): 40 Coding Level of Care Code 17942 OBS Care - Discharge Diagnoses CVA (cerebral vascular accident) I63.9 CAD (coronary artery disease) I25.10 Presence of aortocoronary bypass graft Z95.1 Obesity, diabetes, and hypertension syndrome E11.69; E11.59; E66.9; I10 Hyperlipidemia, unspecified E78.5
--- NOTE | 2022-03-01 12:37 | Pharmacy Report ---
Pharmacist Stroke Counseling - Date of Service March 01, 2022 - Scope: Pharmacy has been consulted to provide medication discharge counseling for this patient admitted with ischemic stroke as per the Pharmacist Discharge Counseling for Stroke Patients Protocol. - Medications on Discharge: Home Medications Medication Instructions Recorded Confirmed amitriptyline 25 mg tablet 25 mg PO HS 05/07/21 02/28/22 aspirin 81 mg tablet,delayed 81 mg PO QAM 05/07/21 02/28/22 release New Rx's Medication Instructions Recorded tamsulosin 0.4 mg capsule 0.4 mg PO HS #30 caps 08/07/21 metoprolol tartrate 25 mg tablet 12.5 mg PO BID #30 tabs 09/10/21 molnupiravir 200 mg capsule (EUA) 800 mg PO Q12H 5 days #40 caps 01/10/22 atorvastatin 40 mg tablet 40 mg PO QAM #30 tabs 03/01/22 clopidogrel 75 mg tablet 75 mg PO QAM 30 days #30 tabs 03/01/22 pantoprazole 20 mg tablet,delayed 20 mg PO DAILY 4 weeks #28 tabs 03/01/22 release - Action: The above medications, specifically ones for stroke treatment/prophylaxis, have been reviewed in detail with the patient and/or patient credit representative(s) prior to discharge. This includes indication, common adverse reactions, drug interactions, and medication administration. Medication counseling has been employed using the teach-back method to ensure understanding. - Outcome: The patient and/or patient credit representative(s) have demonstrated understanding of the medications. Additional comments: Discussed medication changes from simvastatin to atorvastatin, omeprazole to pantoprazole and addition of clopidogrel to aspirin for 3 weeks and then stop aspirin. Discussed side effects, timing of medications, etc. Patient verbalized understanding. Did briefly review other continued medications. Molnupiravir is on continued med list but this medication was for 5 days only for COVID-19. Thank you for allowing pharmacy to be involved in the care of this patient. Please call [phone] with any additional questions
--- NOTE | 2022-03-01 14:42 | XCELERA ---
[id number]
== END 2022-03-01 14:38 | disposition home or self-care (01) ==
LOC: EDINP 10:57 → ED 10:57 → SUATTDRO 16:30 → EDINP 21:45